=== PATIENT | male | born 1995 | race Caucasian/White ===

== ENCOUNTER 2023-05-22 09:14 | Outpatient (AMB) | payer OTHER, SELFPAY ==
[2023-05-22 09:22] VITALS: BP 120/70; PULSE 64; TEMP 36.6; O2SAT 99; BMI 18.9
--- NOTE | 2023-05-22 09:22 | MHC.OFFWIV ---
Intake Vital Signs 05/22/23 09:22 Height 5 ft 8 in Weight 124 lb BMI 18.9 BP 120/70 Blood Pressure Location Lt brachial Position Sitting Pulse 64 Pulse Source Pulse Oximeter Temp 97.9 F Pulse Oximetry (%) 99 Oxygen Delivery Method Room Air Intake Visit Reasons: EP ?Food poisoning Intake Note: pt is here today for food poisoning started thursday Patient Tobacco Use Status: Current someday Tobacco user Allergies No Known Allergies Allergy (Verified 05/22/23 09:25) Do you need a note to return to daycare/school/sports/work: Yes HPI HPI Comments History of Present Illness Details 28 y/o male patient who presents to walk in clinic today with c/o Nausea, vomiting and diarrhea since the weekend. Pt reports wating a chicken sandwich from a Vending Machine. Denies fevers or chills. Reports poor appetite. [facility] Medical History (Updated 09/12/20 @ 12:28 by Denise Do MD) Annual physical exam Family History Father Heart attack Mother No problems noted. Social History (Updated 09/12/20 @ 12:31 by Denise Do MD) Household Members Other:: , well balanced, Housing: Apartment Alcohol intake: current Alcohol intake frequency: a few times a month Patient Tobacco Use Status: Current someday Tobacco user Tobacco use type: Cigarette Cigarettes Per Day: 3 e-Cigarette/Vaping Use: Former Use service: No Current occupational status: employed Review of Systems Const All systems reviewed & are unremarkable except as noted in HPI and below Physical Exam Vital Signs: Last Vital Signs Temp 97.9 F 05/22/23 09:22 Pulse 64 05/22/23 09:22 BP 120/70 05/22/23 09:22 Pulse Ox 99 05/22/23 09:22 Oxygen Delivery Method Room Air 05/22/23 09:22 BMI result Body Mass Index 18.9 Const General: comfortable and no acute distress Nutritional Appearance: underweight Orientation/consciousness: patient oriented x3 GI Inspection: Yes normal to inspection Palpation (GI): Soft to palpation, not firm, nontender, no guarding and not rigid Auscultation: normal bowel sounds Rectal Exam - Male: Yes deferred Neuro General: patient oriented x3, gait normal and moves all extremities Psych Speech and movement: Normal speech and movement present Assessment & Plan Assessment & Plan (1) Gastritis: Code(s): K29.70 - Gastritis, unspecified, without bleeding Qualifiers: Gastritis type: other gastritis Chronicity: acute Gastritis bleeding: without bleeding Qualified Code(s): K29.00 - Acute gastritis without bleeding Plan: - BLAND diet - Hydrate with plenty fluids - Avoid High Fiber foods - Rest (2) Nausea vomiting and diarrhea: Code(s): R11.2 - Nausea with vomiting, unspecified; R19.7 - Diarrhea, unspecified Plan: - BLAND diet - Hydrate with plenty fluids - Avoid High Fiber foods - Rest Plan - BLAND diet - Hydrate with plenty fluids - Avoid High Fiber foods - Rest Medications: New ondansetron 8 mg PO Q8H 30 tabs 0RF K29.00 - Acute gastritis without bleeding, R11.2 - Nausea with vomiting, unspecified, R19.7 - Diarrhea, unspecified metoclopramide HCl (Reglan) 10 mg PO Q6H PRN 30 tabs 0RF nausea and vomiting K29.00 - Acute gastritis without bleeding, R11.2 - Nausea with vomiting, unspecified, R19.7 - Diarrhea, unspecified Coding Level of Care Code Est Pt Level 3 (26564) Diagnoses Other acute gastritis without hemorrhage K29.00 Gastritis type: other gastritis Chronicity: acute Gastritis bleeding: without bleeding Nausea vomiting and diarrhea R11.2; R19.7 Time Spent (min) 15
== END 2023-05-22 10:30 | disposition home or self-care (01) ==
PROVIDERS: PCP Internal Medicine; Visit Provider Nurse Practitioner Family
DX: K29.00 Acute gastritis without bleeding (principal); R11.2 Nausea with vomiting, unspecified; R19.7 Diarrhea, unspecified
CPT/HCPCS: 99213

== ENCOUNTER → 2023-10-20 10:46 | Outpatient (BNVA) | payer SELFPAY | PROVIDERS: PCP Internal Medicine; Visit Provider Registered Nurse | DX: Z02.79 Encounter for issue of other medical certificate (principal) ==

== ENCOUNTER → 2024-11-02 09:20 | Outpatient (BNVA) | payer SELFPAY | PROVIDERS: PCP Internal Medicine; Visit Provider Physician Assistant Medical | DX: Z02.79 Encounter for issue of other medical certificate (principal) ==